=== PATIENT | female | born 1955 | race Caucasian/White ===

== ENCOUNTER 2025-02-19 12:31 | Emergency (ER) | payer MEDICARE ==
[2025-02-19] MEDS: Cyclobenzaprine 10 MG Tab PO ONE (13:00)
[2025-02-19] MEDS: HYDROmorphone 0.5 MG/0.5 ML Syringe IM ONE (13:02)
[2025-02-19] MEDS: HYDROmorphone 0.5 MG/0.5 ML Syringe IVPUSH ONE (13:31)
[2025-02-19 13:33] LABS: BASOPHILS ABSOLUTE AUTO 0.08 K/uL (0.00-0.10); BASOPHILS PERCENT AUTO 0.8 % (0.1-1.3); EOSINOPHILS ABSOLUTE AUTO 0.15 K/uL (0.00-0.40); EOSINOPHILS PERCENT AUTO 1.5 % (0.0-5.4); HEMATOCRIT 40.9 % (34.3-46.0); HEMOGLOBIN 14.1 g/dL (11.2-15.5); IMMATURE GRAN ABSOLUTE AUTO 0.06 K/uL (0.00-0.23); IMMATURE GRAN PERCENT AUTO 0.6 % (0.0-0.7); LYMPHOCYTES ABSOLUTE AUTO 2.35 K/uL (0.8-3.3); LYMPHOCYTES PERCENT AUTO 23.5 % (11.4-47.7); MEAN CORPUSCULAR HEMOGLOBIN 32.6 pg (31.6-35.5); MEAN CORPUSCULAR HGB CONC 34.5 g/dL (31.6-35.5); MEAN CORPUSCULAR VOLUME 94.5 fL (81.4-99.0); MONOCYTES ABSOLUTE AUTO 0.54 K/uL (0.20-0.90); MONOCYTES PERCENT AUTO 5.4 % (3.3-12.6); NEUTROPHILS ABSOLUTE AUTO 6.82 K/uL (1.0-7.6); NEUTROPHILS PERCENT AUTO 68.2 % (40.0-78.1); PLATELET COUNT,PLT 289 K/uL (130-375); RED BLOOD CELL COUNT 4.33 M/uL (3.77-5.24)
[2025-02-19 13:54] LABS: A/G RATIO 1.1 (1.2-2.2); ALANINE AMINOTRANSFERASE,ALT 35 U/L (12-78); ALBUMIN 3.9 g/dL (3.4-5.0); ALKALINE PHOSPHATASE 92 U/L (46-116); ASPARTATE AMNIOTRANSFERASE,AST 21 U/L (15-37); BILIRUBIN TOTAL 0.4 mg/dL (0.2-1.0); BLOOD UREA NITROGEN,BUN 16 mg/dL (7-18); CALCIUM 9.6 mg/dL (8.5-10.1); CARBON DIOXIDE,CO2 28 mmol/L (21-32); CHLORIDE,CL 101 mmol/L (100-108); CREATININE 0.8 mg/dL (0.6-1.0); EST CRCL DRUG DOSING (CG) 57.31 mL/min; ESTIMATED GFR 80 mL/min (>60); GLUCOSE RANDOM 150 mg/dL (74-106); PROTEIN TOTAL,TP 7.5 g/dL (6.4-8.2); SODIUM,NA 137 mmol/L (140-148)
[2025-02-19] MEDS: Sodium Chloride 0.9% 100 ML IV SCH (14:31)
[2025-02-19] MEDS: Sodium Chloride 0.9% 10 ML Syringe FLUSH ONE (14:31)
[2025-02-19] MEDS: Iopamidol 612 MG/ML 100 ML Bottle IV SCH (14:31)
[2025-02-19] MEDS: Acetaminophen/HYDROcodone 325-5 MG Tab PO ONE (15:31)
[2025-02-19] MEDS: Ketorolac 15 MG/ML SDV IVPUSH ONE (15:45)
== END 2025-02-19 16:19 | disposition home or self-care (01) ==
LOC: JP.ED 12:31
DX: S22.42XA Multiple fractures of ribs, left side, initial encounter for closed fracture (principal); I10 Essential (primary) hypertension; E78.00 Pure hypercholesterolemia, unspecified; Z88.2 Allergy status to sulfonamides; Z79.899 Other long term (current) drug therapy; W17.4XXA Fall from dock, initial encounter; Y92.62 Dock or shipyard as the place of occurrence of the external cause
CPT/HCPCS: 36415; 71250; 71260; 74177; 80053; 83690; 85025; 96372; 96374; 96375; 99284; A9270; J1885; Q9967